=== PATIENT | male | born 1945 | race American Indian/Alaskan Native ===

== ENCOUNTER 2025-02-19 11:10 | Emergency (ER) | payer OTHER ==
[2025-02-19 11:21] VITALS: BMI 26.0
[2025-02-19] MEDS ORDERED: LABETALOL HCL 20 MG/4 ML VIAL ONE (12:03)
[2025-02-19] MEDS: LABETALOL HCL 20 MG/4 ML VIAL IVPUSH ONE (12:11)
[2025-02-19 12:30] LABS: ABSOLUTE IMMATURE GRANULOCYTES 0.03 x10^3/uL (0.0-0.031); BASOPHILS # 0.04 x10^3/uL (0.01-0.08); EOSINOPHIL % 7.5 % (0.8-7.0); EOSINOPHILS # 0.52 x10^3/uL (0.04-0.54); MCHC 33.2 g/dl (32.3-36.5); MEAN CELL VOLUME 80.2 fl (79.0-92.2); MEAN PLT VOLUME 9.9 fl (9.4-12.4); MONOCYTE # 0.44 x10^3/uL (0.30-0.82); MONOCYTE % 6.4 % (5.3-12.2); RDW 13.3 % (12.2-16.6)
[2025-02-19 12:39] LABS: INR 1.0 (0.83-1.09); PROTHROMBIN TIME (PATIENT) 11.0 SEC (9.7-13.0)
[2025-02-19 12:42] LABS: ACTIVATED PTT 34.3 SECONDS (25.2-36.5)
[2025-02-19 12:57] LABS: CO2 26.0 mmol/L (21-32); GLUCOSE,RANDOM 84.0 mg/dL (74-106)
[2025-02-19 13:00] LABS: SGOT/AST 19.0 U/L (15-37); SGPT/ALT 42.0 U/L (13-61)
[2025-02-19 13:01] LABS: CREATININE 1.5 mg/dL (0.55-1.3)
[2025-02-19 13:02] LABS: TOT PROT 8.0 g/dl (6.4-8.2)
[2025-02-19 13:03] LABS: ALK PHOS 87.0 U/L (45-117)
[2025-02-19 14:21] VITALS: BP 179/87; PULSE 65; RESP 18; TEMP 97.6
[2025-02-19 15:00] LABS: HCV DIAGNOSTIC IN-HOUSE W/RFLX NON-REACTIVE (NONREACTIVE); HIV INTERPRETATION NEGATIVE (NEGATIVE)
== END 2025-02-19 14:36 | disposition home or self-care (01) ==
LOC: JER 11:10
PROC: 3E033GC Introduction of Other Therapeutic Substance into Peripheral Vein, Percutaneous Approach (ICD-10-PCS; principal; 2025-02-19)
DX: R07.2 Precordial pain (principal); I10 Essential (primary) hypertension
CPT/HCPCS: 36415; 70450-TC; 71045-TC-FY; 80053; 82962; 83735; 84484; 85025; 85610; 85730; 86803; 86850; 86900; 86901; 87389; 93005; 93010; 96374; 99285-25